=== PATIENT | female | born 1995 ===

== ENCOUNTER 2019-11-24 20:00 | Inpatient (IN) ==
[2019-11-24 20:32] LABS: Apearance,Urine CLEAR (Clear); Bilirubin,Urine Negative (Negative); Blood, Urine Small mg/dL (Negative); Glucose,Urine (UA) Negative (Negative); Ketones,Urine Negative (Negative); Mucus,Urine Occasional /LPF (Occasional); Nitrite,Urine Negative (Negative); Protein,Urine 100 MG/DL; RBC,Urine 5 /HPF (0-4); Squamous Epithelial Cell,Urine Occasional /HPF (0-10); Urine Color Yellow (Yellow); Urine Specific Gravity 1.012 (1.001-1.035); Urine Urobilinogen < 2.0 EU/DL (0.2-1.0); WBC,Urine 8 /HPF (0-6)
[2019-11-24] MEDS ORDERED: LACTATED RINGERS 1,000 ML IV SCH (21:00)
[2019-11-24] MEDS ORDERED: hydrALAZINE 20 MG/1 ML VIAL IV ONE (21:41)
[2019-11-25] MEDS ORDERED: MEPERIDINE 50 MG/1 ML VIAL IV PRN (00:11)
[2019-11-25] MEDS ORDERED: OXYTOCIN/LR 20 UNIT/1,000 ML BAG IV PRN (00:11)
[2019-11-25 00:46] LABS: Basophils % 0.3 % (0.0-0.8); Eosinophils % 0.4 % (0.00-10.9); Hematocrit 31.9 VOL% (35.7-47.0); Hemoglobin 10.2 GM/DL (12.0-16.0); Immature Granulocytes % 1.4 %; Immature Granulocytes Absolute 0.13 #; Lymphocytes # 3.1 10*3/uL (1.4-4.0); Lymphocytes % 33.5 % (21.3-54.2); Mean Corpuscular Volume 88.4 FL (87-102); Mean Platelet Volume 11.2 FL (9.6-12.0); Monocytes % 6.7 % (1.7-12.7); Neutrophils % 57.7 % (38.7-73.9); Platelet Count 260 T/CUMM (130-400); Red Blood Count 3.61 MC/CUMM (3.8-5.5); White Blood Count 9.3 T/CUMM (4-12)
[2019-11-25 00:58] LABS: Alanine Aminotransferase 9 U/L (13-56); Alkaline Phosphatase 124 U/L (45-117); Aspartate Amino Transferase 12 U/L (0-37); Bilirubin,Total < 0.39 MG/DL (0.2-1.0); Blood Urea Nitrogen 9 MG/DL (7-18); Calcium 7.9 MG/DL (8.5-10.1); Estimated Glom Filtration Rate 138 ML/MIN; Glucose 77 MG/DL (74-106); Osmolality,Calculated 270.8 MOS/KG (273-304); Total Protein 6.1 G/DL (6.4-8.3)
[2019-11-25 01:08] LABS: INR 0.8; PT Patient Result 8.8 SECS (9.6-12.2); Partial Thromboplastin Time 25.5 SECS (20.8-36.0)
[2019-11-25] MEDS ORDERED: MEPERIDINE 25 MG/1 ML VIAL IV PRN (01:38)
[2019-11-25] MEDS: ONDANSETRON 4 MG/2 ML VIAL IV PRN ×2 (01:46→04:49)
[2019-11-25] MEDS ORDERED: hydrALAZINE 20 MG/1 ML VIAL IV ONE (02:36)
[2019-11-25] MEDS ORDERED: ACETAMINOPHEN 325 MG TABLET PO ONE (03:45)
[2019-11-25] MEDS ORDERED: METHYLERGONOVINE 0.2 MG/1 ML AMP ONE (04:31)
[2019-11-25] MEDS ORDERED: miSOPROStoL 200 MCG TABLET ONE (04:31)
[2019-11-25] MEDS ORDERED: TRANEXAMIC ACID 1,000 MG/10 ML VIAL ONE (04:31)
[2019-11-25] MEDS ORDERED: OXYTOCIN/LR 20 UNIT/1,000 ML BAG IV ONE ×2 (04:31→06:15)
[2019-11-25] MEDS ORDERED: SODIUM CHLORIDE 0.9% 100 ML IV ONE (04:32)
[2019-11-25] MEDS ORDERED: CARBOPROST TROMETHAMINE 250 MCG/ML AMP IM ONE ×2 (04:32→05:48)
[2019-11-25] MEDS ORDERED: LIDOCAINE 1% 50 ML VIAL ONE (04:35)
[2019-11-25] MEDS ORDERED: miSOPROStoL 200 MCG TABLET PO ONE (05:25)
[2019-11-25] MEDS ORDERED: DIPHENOXYLATE/ATROPINE 2.5-0.025 MG TABLET PO PRN (05:47)
[2019-11-25 06:02] LABS: Cord Arterial Blood HCO3 16.6 MMOL/L
[2019-11-25 06:05] LABS: Cord Venous Blood HCO3 19.5 MMOL/L; Cord Venous Blood PCO2 39.5 MMHG; Cord Venous Blood PO2 22.2
[2019-11-25] MEDS ORDERED: oxyCODONE/ACETAMINOPHEN 5-325 MG TABLET PO PRN (06:15)
[2019-11-25] MEDS ORDERED: BISACODYL 10 MG SUPP RECTAL PRN (06:15)
[2019-11-25] MEDS ORDERED: ONDANSETRON 4 MG/2 ML VIAL IV PRN (06:15)
[2019-11-25] MEDS ORDERED: RHO(D) IMMUNE GLOBULIN 300 MCG SYRINGE IM ONE (06:15)
[2019-11-25] MEDS ORDERED: ACETAMINOPHEN 325 MG TABLET PO PRN (06:15)
[2019-11-25] MEDS ORDERED: DIPH/TET/ACEL PERT BOOSTER VACCINE 0.5 ML VIAL IM ONE (06:15)
[2019-11-25] MEDS ORDERED: WITCH HAZEL PADS 100/JAR TOP PRN (06:15)
[2019-11-25] MEDS ORDERED: HYDROCORTISONE 2.5% RECTAL CREAM 30 GM TUBE TOP PRN (06:15)
[2019-11-25] MEDS ORDERED: LANOLIN 50% CREAM 0.3 OZ TUBE TOP PRN (06:15)
[2019-11-25] MEDS ORDERED: BENZOCAINE 20%/MENTHOL 0.5% SPRAY 56 GM CAN TOP PRN (06:15)
[2019-11-25] MEDS ORDERED: MEASLES/MUMPS/RUBELLA VACCINE 0.5 ML VIAL SUBCUT ONE (06:15)
[2019-11-25] MEDS ORDERED: OXYTOCIN/LR 30 UNIT/1,000 ML BAG IV ONE (07:15)
[2019-11-25 08:22] LABS: Hematocrit 26.5 VOL% (35.7-47.0)
[2019-11-25 08:25] LABS: Hemoglobin 8.2 GM/DL (12.0-16.0)
[2019-11-25] MEDS ORDERED: SODIUM CHLORIDE 0.9% 1,000 ML IV PRN (08:31)
[2019-11-25] MEDS: IBUPROFEN 800 MG TABLET PO PRN ×2 (11:02→20:28)
[2019-11-25] MEDS: DOCUSATE SODIUM 100 MG CAPSULE PO SCH ×2 (14:34→20:28)
[2019-11-25 14:51] LABS: Hematocrit 28.2 VOL% (35.7-47.0); Hemoglobin 9.3 GM/DL (12.0-16.0)
[2019-11-25] MEDS: FERROUS SULFATE 325 MG TABLET PO SCH (20:28)
[2019-11-26 06:04] LABS: Basophils % 0.4 % (0.0-0.8); Eosinophils % 0.4 % (0.00-10.9); Hematocrit 24.4 VOL% (35.7-47.0); Hemoglobin 7.8 GM/DL (12.0-16.0); Immature Granulocytes % 0.6 %; Immature Granulocytes Absolute 0.06 #; Lymphocytes # 4.3 10*3/uL (1.4-4.0); Lymphocytes % 40.5 % (21.3-54.2); Mean Corpuscular Volume 90.7 FL (87-102); Mean Platelet Volume 10.5 FL (9.6-12.0); Monocytes % 5.3 % (1.7-12.7); Neutrophils % 52.8 % (38.7-73.9); Platelet Count 190 T/CUMM (130-400); Red Blood Count 2.69 MC/CUMM (3.8-5.5); Red Cell Distribution Width 16.3 % (9.3-17.3); White Blood Count 10.5 T/CUMM (4-12)
[2019-11-26] MEDS: IBUPROFEN 800 MG TABLET PO PRN ×2 (07:37→15:33)
[2019-11-26] MEDS: FERROUS SULFATE 325 MG TABLET PO SCH ×2 (07:37→20:58)
[2019-11-26] MEDS: DOCUSATE SODIUM 100 MG CAPSULE PO SCH ×2 (07:37→20:58)
[2019-11-26] MEDS ORDERED: SODIUM CHLORIDE 0.9% 1,000 ML IV PRN (08:14)
[2019-11-26] MEDS: oxyCODONE/ACETAMINOPHEN 5-325 MG TABLET PO PRN (15:33)
[2019-11-27] MEDS: oxyCODONE/ACETAMINOPHEN 5-325 MG TABLET PO PRN (04:28)
[2019-11-27 05:58] LABS: Hematocrit 30.9 VOL% (35.7-47.0); Hemoglobin 10.1 GM/DL (12.0-16.0)
[2019-11-27] MEDS: DOCUSATE SODIUM 100 MG CAPSULE PO SCH (08:25)
[2019-11-27] MEDS: IBUPROFEN 800 MG TABLET PO PRN (08:25)
[2019-11-27] MEDS: FERROUS SULFATE 325 MG TABLET PO SCH (08:25)
[2019-11-27 12:00] VITALS: BP 140/85
[2019-11-27] MEDS ORDERED: FUROSEMIDE 40 MG TABLET PO ONE (12:54)
== END 2019-11-27 14:15 | disposition home or self-care (01) | DRG 560 ==
LOC: N.LDOUT 20:00 → N.LD 20:01 → N.OB 11-25 14:17
PROVIDERS: ADMIT Obstetrics & Gynecology; ATTEND Obstetrics & Gynecology